=== PATIENT | female | born 1995 | race Two or more races ===

== ENCOUNTER 2016-06-12 05:16 | Emergency (ER) | payer MEDICAID, OTHER ==
[~2016-06-12] VITALS: Ht 162.6 cm; Wt 69.6 kg
[2016-06-12] MEDS ORDERED: SODIUM CHLORIDE 0.9% 1,000 ML IVB ONE (05:39)
[2016-06-12 06:15] LABS: Basophils # (auto) 0 uL; Basophils % (auto) 0.4 % (0.0-2.0); Eosinophils # (auto) 0 uL; Eosinophils % (auto) 0.4 % (0.0-7.0); Hemoglobin 14.6 g/dL (12.2-16.2); Lymphocytes # (auto) 0.4 uL; Lymphocytes % (auto) 5.4 % (10.0-50.0); Mean Corpuscular Hemoglobin 28.6 pg (28.0-32.0); Mean Corpuscular Volume 86.4 fL (80.0-100.0); Mean Platelet Volume 8.7 fL (7.4-10.4); Monocytes # (auto) 0.6 uL; Monocytes % (auto) 7.4 % (0.0-12.0); Neutrophils # (auto) 6.7 uL; Neutrophils % (auto) 86.4 % (37.0-80.0); Platelet Count (auto) 281 10^3/uL (140-450); Red Cell Distribution Width 13.1 % (11.6-16.0); White Blood Cell 7.7 10^3/uL (4.4-10.8)
[2016-06-12 06:46] LABS: Albumin 4.2 g/dL (3.4-5.0); BUN/Creatinine Ratio 11.6; Bilirubin, Total 0.7 mg/dL (0.2-1.0); Calcium 8.7 mg/dL (8.5-10.1); Potassium 3.6 mmol/L (3.5-5.1); Total Protein 8.6 g/dL (6.4-8.2)
[2016-06-12 08:00] LABS: Urine RBC None Seen /hpf (0 - 4)
[2016-06-12 08:13] LABS: Urine Bilirubin Negative (Negative); Urine Blood Negative /uL (Negative); Urine Color Yellow (Yellow); Urine Glucose Normal (Normal); Urine Ketone Negative (Negative); Urine Mucus FEW (None Seen); Urine Nitrite Negative (Negative); Urine Squamous Epithelial Cell FEW /hpf (<5); Urine Urobilinogen Normal (Negative); Urine pH 5.5 (5.0-8.0)
[2016-06-12 08:24] VITALS: BP 114/69
== END 2016-06-12 09:24 | disposition home or self-care (01) ==
LOC: ER 05:16
DX: R55 Syncope and collapse (principal); R42 Dizziness and giddiness; R53.1 Weakness; R11.0 Nausea; R19.7 Diarrhea, unspecified
CPT/HCPCS: 36415; 70450; 71010; 80053; 80307; 81001; 81025; 82962; 83735; 85025; 93005; 94761; 96360; 96361; 99285; J7030